=== PATIENT | female | born 1985 | race Caucasian/White ===

== ENCOUNTER 2017-10-19 21:47 | Emergency (ER) | payer OTHER ==
[2017-10-19 22:15] VITALS: BP 130/96
--- NOTE | 2017-10-19 23:50 | EDM.PDOC ---
ED HPI GENERAL MEDICAL PROBLEM - General Chief Complaint: Abdominal Pain Stated Complaint: LEFT SIDE STOMACH PAIN Time Seen by Provider: 10/19/17 23:43 - History of Present Illness INITIAL COMMENTS - FREE TEXT/NARRATIVE: 32-year-old female presents emergency room with left-sided abdominal and flank pain. This was pretty sudden onset pain that started about 4 hours before arriving the pain is quite severe. The patient has not had any pain like this in the past. The pain stays on the left side radiates towards the groin. The patient has not had any fevers or chills she's had some nausea no vomiting no burning or frequency with urination she denies being . Treatments RADIOLOGY RECEPTIONIST: Reports: Other (see below) Other Treatments RADIOLOGY RECEPTIONIST: none Left Abdomen Pain Score (Numeric/FACES): 8 - Related Data Allergies Allergy/AdvReac Type Severity Reaction Status Date / Time amoxicillin trihydrate Allergy Rash Verified 11/28/15 22:35 [From Augmentin] diphenhydramine HCl Allergy Anxiety Verified 11/28/15 22:35 [From Benadryl] erythromycin base Allergy Other Verified 11/28/15 22:35 potassium clavulanate Allergy Rash Verified 11/28/15 22:35 [From Augmentin] Home Meds: Home Meds Norgestimate-Ethinyl Estradiol [Young-Linyah 28 Tablet] 1 tab PO DAILY 10/19/17 [ History] Acetaminophen/HYDROcodone [[place] 325-5 MG] 1 - 2 tab PO Q6H #20 tablet 10/20/17 [Rx] Past Medical History - Past Health History Medical/Surgical History: Denies 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 Denies: Constipation, Diarrhea, Vomiting : Reports: Flank Pain. Denies: Discharge, Dysuria, Frequency, Hematuria Musculoskeletal: Reports: No Symptoms Skin: Reports: No Symptoms Neurological: Reports: No Symptoms ED EXAM, GI/ABD - Physical Exam Exam: See Below Exam Limited By: No Limitations General Appearance: Alert, No Apparent Distress. No: Mild Distress Head: Atraumatic, Normocephalic Neck: Normal Inspection, Supple, Non-Tender, Full Range of Motion Respiratory/Chest: No Respiratory Distress, Lungs Clear, Normal Breath Sounds, No Accessory Muscle Use, Chest Non-Tender GI/Abdominal Exam: Normal Bowel Sounds, Soft, Other (Had some mild discomfort on the left at the time of my examination. No rebound or rigidity noted. The patient noted that pain is much better and had for the most part stopped short time ago) Back Exam: Normal Inspection. No: CVA Tenderness (L), CVA Tenderness (R) Course - Vital Signs Last Recorded V/S: Last Vital Signs Temp 36.9 C 10/19/17 22:13 Pulse 75 10/19/17 22:13 Resp 20 10/19/17 22:13 BP 130/96 H 10/19/17 22:13 Pulse Ox 100 10/19/17 22:13 - Orders/Labs/Meds Orders: Active Orders 24 hr Category Date Time Status HCG QUALITATIVE,URINE [URCHEM] Stat Lab 10/19/17 22:13 Ordered UA W/MICROSCOPIC [URIN] Stat Lab 10/19/17 22:20 Ordered Labs: Laboratory Tests 10/19/17 10/19/17 10/19/17 Range/Units 22:13 22:20 23:43 WBC 11.20 H (3.98-10.04) K/mm3 RBC 4.74 (3.98-5.22) M/mm3 Hgb 13.7 (11.2-15.7) gm/L Hct 40.7 (34.1-44.9) % MCV 85.9 (79.4-94.8) fl MCH 28.9 (25.6-32.2) pg MCHC 33.7 (32.2-35.5) g/dl RDW Std Deviation 39.8 (36.4-46.3) fL Plt Count 433 H (182-369) K/mm3 MPV 9.9 (9.4-12.3) fl Neut % (Auto) 75.6 H (34.0-71.1) % Lymph % (Auto) 16.8 L (19.3-51.7) % Young % (Auto) 5.1 (4.7-12.5) % Eos % (Auto) 1.3 (0.7-5.8) Baso % (Auto) 0.8 (0.1-1.2) % Neut # (Auto) 8.47 H (1.56-6.13) K/mm3 Lymph # (Auto) 1.88 (1.18-3.74) K/mm3 Young # (Auto) 0.57 H (0.24-0.36) K/mm3 Eos # (Auto) 0.15 (0.04-0.36) K/mm3 Baso # (Auto) 0.09 H (0.01-0.08) K/mm3 Sodium (136-145) mEq/L Potassium (3.5-5.1) mEq/L Chloride (98-107) mEq/L Carbon Dioxide (21-32) mEq/L Anion Gap (5-15) BUN (7-18) mg/dL Creatinine (0.55-1.02) mg/dL Est Cr Clr Drug Dosing mL/min Estimated GFR (MDRD) (>60) mL/min BUN/Creatinine Ratio (14-18) Glucose (74-106) mg/dL Calcium (8.5-10.1) mg/dL Total Bilirubin (0.2-1.0) mg/dL AST (15-37) U/L ALT (14-59) U/L Alkaline Phosphatase (46-116) U/L Total Protein (6.4-8.2) g/dl Albumin (3.4-5.0) g/dl Globulin gm/dL Albumin/Globulin Ratio (1-2) Urine Color Yellow (Yellow) Urine Appearance Clear (Clear) Urine pH 6.5 (5.0-8.0) Ur Specific [place] > or = 1.030 (1.005-1.030) Urine Protein 1+ H (Negative) Urine Glucose (UA) Negative (Negative) Urine Ketones Negative (Negative) Urine Occult Blood 3+ H (Negative) Urine Nitrite Negative (Negative) Urine Bilirubin Negative (Negative) Urine Urobilinogen 0.2 (0.2-1.0) Ur Leukocyte Esterase Negative (Negative) Urine RBC 75-100 H (0-5) /hpf Urine WBC 0-5 (0-5) /hpf Ur Epithelial Cells 5-10 H (0-5) /hpf Urine Bacteria Few (FEW) /hpf Urine Mucus Few (FEW) /hpf Urine HCG, Qual Negative (NEGATIVE) 10/19/17 Range/Units 23:43 WBC (3.98-10.04) K/mm3 RBC (3.98-5.22) M/mm3 Hgb (11.2-15.7) gm/L Hct (34.1-44.9) % MCV (79.4-94.8) fl MCH (25.6-32.2) pg MCHC (32.2-35.5) g/dl RDW Std Deviation (36.4-46.3) fL Plt Count (182-369) K/mm3 MPV (9.4-12.3) fl Neut % (Auto) (34.0-71.1) % Lymph % (Auto) (19.3-51.7) % Young % (Auto) (4.7-12.5) % Eos % (Auto) (0.7-5.8) Baso % (Auto) (0.1-1.2) % Neut # (Auto) (1.56-6.13) K/mm3 Lymph # (Auto) (1.18-3.74) K/mm3 Young # (Auto) (0.24-0.36) K/mm3 Eos # (Auto) (0.04-0.36) K/mm3 Baso # (Auto) (0.01-0.08) K/mm3 Sodium 140 (136-145) mEq/L Potassium 3.7 (3.5-5.1) mEq/L Chloride 104 (98-107) mEq/L Carbon Dioxide 27 (21-32) mEq/L Anion Gap 12.7 (5-15) BUN 10 (7-18) mg/dL Creatinine 1.0 (0.55-1.02) mg/dL Est Cr Clr Drug Dosing 62.07 mL/min Estimated GFR (MDRD) > 60 (>60) mL/min BUN/Creatinine Ratio 10.0 L (14-18) Glucose 118 H (74-106) mg/dL Calcium 9.1 (8.5-10.1) mg/dL Total Bilirubin 0.2 (0.2-1.0) mg/dL AST 16 (15-37) U/L ALT 37 (14-59) U/L Alkaline Phosphatase 67 (46-116) U/L Total Protein 7.5 (6.4-8.2) g/dl Albumin 3.8 (3.4-5.0) g/dl Globulin 3.7 gm/dL Albumin/Globulin Ratio 1.0 (1-2) Urine Color (Yellow) Urine Appearance (Clear) Urine pH (5.0-8.0) Ur Specific [place] (1.005-1.030) Urine Protein (Negative) Urine Glucose (UA) (Negative) Urine Ketones (Negative) Urine Occult Blood (Negative) Urine Nitrite (Negative) Urine Bilirubin (Negative) Urine Urobilinogen (0.2-1.0) Ur Leukocyte Esterase (Negative) Urine RBC (0-5) /hpf Urine WBC (0-5) /hpf Ur Epithelial Cells (0-5) /hpf Urine Bacteria (FEW) /hpf Urine Mucus (FEW) /hpf Urine HCG, Qual (NEGATIVE) - Re-Assessments/Exams Free Text/Narrative Re-Assessment/Exam: 10/20/17 02:15 At the time of my initial exam the patient was for the most part pain-free she had mild discomfort with palpation of the left side of the abdomen. Laboratory evaluation showed a urinalysis is not suggestive of infectious process she had noticeable microscopic hematuria. Discussed situation with the patient imaging is certainly an option however comes at the risk of high-dose radiation and it was decided best not to do this as she was for the most part symptom-free at this point. The laboratory evaluation was otherwise unremarkable. The patient was observed for some time after this ear pain really did not return in any significant fashion she had a brief episode of minimal discomfort but this resolved on its own. The patient will be discharged with equipment to capture the presumed kidney stone. She's also given a prescription for [place] just in case. Departure - Departure Time of Disposition: 02:07 Disposition: Home, Self-Care 01 Clinical Impression: Renal calculus, left - Discharge Information Prescriptions: Acetaminophen/HYDROcodone [[place] 325-5 MG] 1 - 2 tab PO Q6H #20 tablet Referrals: Pennie Nj MD [Primary Care Provider] - Forms: ED Department Discharge Additional Instructions: Return to emergency room if any questions problems worsening symptoms. Follow-up with your regular physician in one week sooner if needed. You have been given a prescription for some pain medication use only as needed. One or 2 every 6 hours. Allow 12 hours after using this medication before driving or returning to work. Strain your urine and try and capture the presumed kidney stone. - My Orders Last 24 Hours: My Active Orders 10/19/17 22:13 HCG QUALITATIVE,URINE [URCHEM] Stat 10/19/17 22:20 UA W/MICROSCOPIC [URIN] Stat - Assessment/Plan Last 24 Hours: My Active Orders 10/19/17 22:13 HCG QUALITATIVE,URINE [URCHEM] Stat 10/19/17 22:20 UA W/MICROSCOPIC [URIN] Stat
== END 2017-10-20 02:19 | disposition home or self-care (01) ==
LOC: JD.ED 21:47
DX: N20.2 Calculus of kidney with calculus of ureter (principal); Z88.1 Allergy status to other antibiotic agents
CPT/HCPCS: 36415; 80053; 81001; 81025; 85025; 99284